=== PATIENT | female | born 1940 | race Caucasian/White ===

== ENCOUNTER 2017-07-12 15:25 | Observation (INO) ==
--- NOTE | 2017-07-12 15:56 | Emergency Department Note ---
Disposition Clinical Impression: Palpitations, New onset atrial fibrillation Disposition: Admitted As Inpatient Condition: Fair Referrals: Vicente Clayton MD [Family Provider] - NONE,PCP [Primary Care Provider] - Forms: ED Satisfaction Letter General Adult HPI - General Chief complaint: ED Arrhythmia/Palpitations Stated complaint: weakness. irreg HR Time Seen by Provider: 07/12/17 15:28 Source: patient, EMS Mode of arrival: ambulatory Limitations: no limitations Nursing Notes Reviewed: Yes Vital Signs Reviewed: Yes - History of Present Illness HPI Narrative: Patient presents today for evaluation of palpitations. Patient states that she can feel the palpitations and rapid heart rate. When she is standing she does feel weak with these. She has had previous palpitations in the past with cardiac workup including echo cardiac catheter and Holter monitor. These were more than 2 years ago. She at this time was found to have some PVCs per report by her but nothing else. The patient has not had any issues for some time. Patient does have a history of hypertension and hypercholesterolemia. Patient does not smoke or drink or use recreational drugs. Pain Scale: 0 - Related Data Home Medications Medication Instructions Recorded Confirmed Atorvastatin Calcium [Lipitor] 20 mg PO HS 07/12/17 07/12/17 Metoprolol [Lopressor] 25 mg PO BID 07/12/17 07/12/17 amLODIPine [Norvasc] 5 mg PO DAILY 07/12/17 07/12/17 hydroCHLOROthiazide 25 mg PO DAILY 07/12/17 07/12/17 [Hydrochlorothiazide] Allergies Allergy/AdvReac Type Severity Reaction Status Date / Time No Known Allergies Allergy Verified 07/12/17 16:53 Review of Systems: CONSTITUTIONAL: Weakness when standing at work but resolved while resting in bed No weight loss, fever, chills, HEENT: Eyes: No visual changes. Ears, Nose, Throat: No hearing loss, difficulty talking or unable to swallow. SKIN: No rash or itching. CARDIOVASCULAR: Palpitations without chest pain or pressure RESPIRATORY: No shortness of breath, cough or sputum. GASTROINTESTINAL: No anorexia, nausea, vomiting or diarrhea. No abdominal pain or blood. GENITOURINARY: No burning on urination or hematuria. NEUROLOGICAL: No headache, dizziness, syncope, paralysis, ataxia, numbness or tingling in the extremities. No change in bowel or bladder control. MUSCULOSKELETAL: No muscle pain, back pain, joint pain or stiffness. Past Medical History - Past Medical History Medical history: Reports: atrial fibrillation, hypertension Psychiatric history: Reports: no psych history - Social History Smoking Status: Never smoker Smokeless Tobacco Status: No Alcohol use: Reports: none Drug use: Reports: none Physical Exam General: Well appearing, nontoxic, no acute distress Head: Normocephalic Atraumatic Eyes: PERRL, EOMI ENT: Airway patent, no stridor Neck: supple, no meningismus Chest: Lungs clear to auscultation bilateral Cardiac: Regular rate and rhythm, no murmurs, rubs or gallops Abdomen: soft, nontender, nondistended; no guarding, rebound, or tenderness to percussion Musculoskeletal: Calves symmetric, nontender, no palpable cord Skin: No rash, normal skin tone Neuro: Alert and Oriented to person, place, and time; No focal deficit, - General General appearance: alert Course - Reevaluation(s) Reevaluation #1: Patient reevaluated and continued to be asymptomatic. Cardizem medications have been given. The patient's blood work is unremarkable. Patient will need further evaluation within the hospital. Patient agrees to admission. - Consultations Consultation #1: Discussed with cardiology. Likely A. fib. Low-dose Cardizem given the high variation in rate. Admit to the hospitalist and they will consult. Consultation #2: Discussed with hospitalist. Patient accepted for admission. Vital Signs Temperature 98.4 F 07/12/17 15:33 Pulse Rate 170 07/12/17 15:33 Respiratory Rate 18 07/12/17 15:33 Blood Pressure 145/103 07/12/17 15:33 O2 Sat by Pulse Oximetry 99 07/12/17 15:33 Temperature 98.4 F 07/12/17 15:33 Pulse Rate 124 07/12/17 17:06 Respiratory Rate 16 07/12/17 17:06 Blood Pressure 124/81 07/12/17 17:06 O2 Sat by Pulse Oximetry 96 07/12/17 17:06 Oxygen Delivery Oxygen Delivery Room Air Medical Decision Making - Medical Records Medical records reviewed: Yes I reviewed the patient's medical records. - Lab Data Lab results reviewed: Yes I reviewed the patient's lab results. Result diagrams: 07/12/17 15:50 07/12/17 15:50 Lab Results 0507/12/17 07/12/17 Range/Units 15:50 15:50 16:06 WBC 9.0 (4.3-11.1) K/mcL RBC 4.56 (3.82-4.97) M/mcL Hgb 14.6 (11.5-15.4) g/dL Hct 42.5 (35.3-44.9) % MCV 93.2 (83.0-100.0) fL MCH 32.0 (28.0-33.3) pg MCHC 34.4 (31.6-35.5) g/dL RDW 12.7 (11.5-14.5) % Plt Count 222 (140-400) K/mcL MPV 11.7 (9.4-12.4) fL Immature Gran % 0.6 (0-4) % Seg Neutrophils % 69.6 % Lymphocytes % 20.4 % Monocytes % 6.8 % Eosinophils % 1.9 % Basophils % 0.7 % Neutrophils # 6.2 (1.6-8.9) K/mcL Lymphocytes # 1.8 (0.6-4.6) K/mcL Monocytes # 0.6 (0.0-1.3) K/mcL Eosinophils # 0.2 (0.0-0.6) K/mcL Basophils # 0.1 (0.0-0.2) K/mcL Sodium 139 (136-145) mEq/L Potassium 3.8 (3.5-5.1) mEq/L Chloride 103 (98-107) mEq/L Carbon Dioxide 30 H (23-29) mEq/L BUN 18 (8-23) mg/dL Creatinine 0.75 (0.60-1.20) mg/dL Est GFR ( Amer) > 60 (> 60) Est GFR (Non-Af Amer) > 60 (> 60) BUN/Creatinine Ratio 24 (6-26) Glucose 114 H (70-105) mg/dL Calculated Osmolality 291 (280-300) Calcium 9.3 (8.6-10.3) mg/dL Magnesium 2.0 (1.6-2.6) mg/dL Troponin I < 0.03 (< 0.04) ng/mL TSH 1.857 (0.340-5.600) mcIU/mL Urine Color Yellow (Yellow) Urine Clarity Clear (Clear) Urine pH 7.5 (5.0-8.0) pH Units Ur Specific [place] 1.011 (1.010-1.025) Urine Protein Negative (Neg-Trace) mg/dL Urine Glucose (UA) Normal (Normal) mg/dL Urine Ketones Negative (Negative) mg/dL Urine Blood Negative (Negative) Urine Nitrite Negative (Negative) Urine Bilirubin Negative (Negative) Urine Urobilinogen Normal (Normal) mg/dL Ur Leukocyte Esterase Negative (Negative) Ur Culture Indicated? NO (NO) - Radiology Data Radiology results reviewed: Yes I reviewed the patient's radiology results. - EKG Data EKG #1 EKG attestation: Yes I reviewed and interpreted this EKG. EKG results narrative: EKG is irregular with episodes of tachycardia approximately a rate of 150. No discernible T waves other episodes of pauses and discernible P waves. No specific heart block. Concern for atrial fibrillation with RVR however sick sinus syndrome is also a consideration. Cardiology will be contacted. No previous EKG for comparison.
--- NOTE | 2017-07-12 16:08 | Emergency Department Note ---
Disposition Clinical Impression: Palpitations Disposition: Still a Patient Condition: Fair Forms: ED Satisfaction Letter Arrhythmia/Palpitations HPI - General Chief Complaint: ED Arrhythmia/Palpitations Stated Complaint: weakness. irreg HR Time Seen by Provider: 07/12/17 15:28 Source: patient, EMS Mode of arrival: ambulatory Limitations: no limitations Nursing Notes Reviewed: Yes Vital Signs Reviewed: Yes Past Medical History - Past Medical History Medical history: Reports: atrial fibrillation, hypertension Psychiatric history: Reports: no psych history - Social History Smoking Status: Never smoker Smokeless Tobacco Status: No Alcohol use: Reports: none Drug use: Reports: none Physical Exam - General Limitations: no limitations General appearance: alert Course Vital Signs Temperature 98.4 F 07/12/17 15:33 Pulse Rate 170 07/12/17 15:33 Respiratory Rate 18 07/12/17 15:33 Blood Pressure 145/103 07/12/17 15:33 O2 Sat by Pulse Oximetry 99 07/12/17 15:33 Temperature 98.4 F 07/12/17 15:33 Pulse Rate 170 07/12/17 15:33 Respiratory Rate 18 07/12/17 15:33 Blood Pressure 145/103 07/12/17 15:33 O2 Sat by Pulse Oximetry 98 07/12/17 15:48 Oxygen Delivery Oxygen Delivery Room Air Attestation Statement - Attestation Attestation: I, Juve Diaz, examined this patient and my medical decision-making was reviewed with the [employer]/PA/Advanced Practice Nurse/Resident Physician. I agree with the documented findings, disposition and treatment plan as described except to the extent set forth below. 77-year-old female presents emergency Department with concerns of palpitations. Patient states symptoms started around 3 AM and have been intermittent since that time. Patient states occasionally her heart rate will race and then returned normal. There is occurred multiple times in the past and generally occurs every 3-4 months. She states that usually resolves without intervention however he did not resolve today. Patient states she feels lightheaded with the palpitations, denies chest pain in the emergency department. No recent changes in her medications. She does not take blood thinning medications. Patient denies shortness of breath or cough or fever. EKG showed an irregular tachycardic rhythm that at times speeds to a rate of 150 without discernible P waves and other times will have a rate of 80 with what seems to be coinciding P waves. Patient is not unstable at this time. We will consult cardiology regarding the EKG. Patient comfortable with the plan for admission to the hospital. Laboratory evaluation and imaging is pending at this time.
[2017-07-12 16:11] LABS: Bilirubin,Urine Negative (Negative); Blood,Urine Negative (Negative); Clarity,Urine Clear (Clear); Color,Urine Yellow (Yellow); Glucose,Urine (UA) Normal (Normal); Ketones,Urine Negative (Negative); Leukocyte Esterase,Urine Negative (Negative); Nitrite,Urine Negative (Negative); PH,Urine 7.5 pH Units (5.0-8.0); Protein,Urine Negative (Neg-Trace); Specific Gravity,Urine 1.011 (1.010-1.025); Urobilinogen,Urine Normal (Normal)
[2017-07-12 16:45] LABS: BUN/Creatinine Ratio 24 (6-26); Blood Urea Nitrogen 18 mg/dL (8-23); Calcium 9.3 mg/dL (8.6-10.3); Carbon Dioxide 30 mEq/L (23-29); Chloride 103 mEq/L (98-107); Glucose 114 mg/dL (70-105); Osmolality,Calculated 291 (280-300); Potassium 3.8 mEq/L (3.5-5.1); Sodium 139 mEq/L (136-145); eGFR For African Americans > 60 (> 60); eGFR For Non-African Americans > 60 (> 60)
[2017-07-12 16:50] LABS: Basophils # 0.1 K/mcL (0.0-0.2); Basophils % 0.7 %; Eosinophils # 0.2 K/mcL (0.0-0.6); Eosinophils % 1.9 %; Hematocrit 42.5 % (35.3-44.9); Hemoglobin 14.6 g/dL (11.5-15.4); Immature Granulocytes % 0.6 % (0-4); Lymphocytes # 1.8 K/mcL (0.6-4.6); Lymphocytes % 20.4 %; Mean Corpuscular HGB Conc 34.4 g/dL (31.6-35.5); Mean Corpuscular Volume 93.2 fL (83.0-100.0); Mean Platelet Volume 11.7 fL (9.4-12.4); Monocytes # 0.6 K/mcL (0.0-1.3); Monocytes % 6.8 %; Neutrophils # 6.2 K/mcL (1.6-8.9); Platelet Count 222 K/mcL (140-400); Red Blood Count 4.56 M/mcL (3.82-4.97); Red Cell Distribution Width 12.7 % (11.5-14.5); Segmented Neutrophils % 69.6 %
[2017-07-12 16:53] LABS: Troponin I < 0.03 ng/mL (< 0.04)
[2017-07-12 17:08] LABS: Thyroid Stimulating Hormone 1.857 mcIU/mL (0.340-5.600)
[2017-07-12] MEDS ORDERED: *HR* Enoxaparin 80 MG/0.8 ML SYRINGE SQ STA (17:16)
--- NOTE | 2017-07-12 18:29 | Internal Med History&Physical ---
Date of Encounter: 07/12/17 Time of Encounter: 08:00 Internal Medicine - H&P: HPI Chief complaint: palpitaion History of present illness: Ms. Ortega is a 77 year old female was past medical history of hypertension who presents today for evaluation of palpitations and rapid heart rate. She follow [facility] outpatient for previous similar episode, and she went under cardiac workup including echo cardiac catheter and Holter monitor 2 years ago. she was evaluated by the ER staff and was started on Cardizem to control rate successfully, she was also started on pharmacological anticoagulation with Lovenox, cardiology was consulted and patient was admitted for further evaluation and management Past Med Surg Social Fam HX - Past Medical History Medical history: atrial fibrillation, hypertension Psychiatric history: no psych history - Social History Smoking Status: Never smoker Smokeless Tobacco Status: No Alcohol use: none Drug use: none Internal Medicine - H&P: Meds Atorvastatin Calcium [Lipitor] 20 mg PO HS 07/12/17 [History] Metoprolol [Lopressor] 25 mg PO BID 07/12/17 [History] amLODIPine [Norvasc] 5 mg PO DAILY 07/12/17 [History] hydroCHLOROthiazide [Hydrochlorothiazide] 25 mg PO DAILY 07/12/17 [History] Apixaban [Eliquis] 5 mg PO BID #60 tablet 07/13/17 [Rx] Potassium Chloride 20 meq PO DAILY #5 tab.er.prt 07/13/17 [Rx] 3 Allergy/AdvReac Type Severity Reaction Status Date / Time No Known Allergies Allergy Verified 07/12/17 16:53 All Systems PM: A 10-system review of systems was performed and is negative for pertinent findings except as documented above in the HPI. - Constitutional Constitutional: fatigue, no chills, no fever(s), no night sweats - Cardiovascular Cardiovascular ROS IM: dyspnea, irregular heart rhythm, lightheadedness, palpitations, no chest pain, no diaphoresis, no syncope - Respiratory Respiratory: no dyspnea, no wheezing, no excessive phlegm production - Gastrointestinal Gastrointestinal: no abdominal pain, no diarrhea, no hematemesis, no hematochezia, no melena, no nausea, no vomiting - Neurological Neurological ROS: no confusion, no convulsions, no focal weakness, no numbness, no tingling, no tremor(s) - Constitutional Vitals: Temp Pulse Resp BP Pulse Ox 98.4 F 124 16 124/81 96 07/12/17 15:33 07/12/17 17:06 07/12/17 17:06 07/12/17 17:06 07/12/17 17:06 Internal Med - H&P Results - Labs CBC & Chem 7: 07/13/17 00:45 07/13/17 00:45 - Assessment and plan (1) New onset atrial fibrillation Status: Acute Assessment and plan: the patient was started on Cardizem drip in the ER, now rate is controlled, she was also started on anticoagulation with Lovenox , we'll obtain echo to rule out structural abnormalities, admitted to the telemetry unit, cardiology was consulted for further evaluation and management (2) Hypertension Status: Acute Assessment and plan: we will continue home medication with holding parameters Qualifiers: Hypertension type: essential hypertension Qualified Code(s): I10 - Essential (primary) hypertension (3) DVT prophylaxis Status: Acute Assessment and plan: the patient was started on Lovenox. (4) Hyperlipidemia Status: Acute Assessment and plan: we will continue home statin and obtain fasting lipid profile in a.m. Qualifiers: Hyperlipidemia type: pure hypercholesterolemia Qualified Code(s): E78.00 - Pure hypercholesterolemia, unspecified; E78.0 - Pure hypercholesterolemia - Time Spent With Patient Total time spent is greater than 50% in coordination of care (as documented) at patient's floor/unit and/or counseling patient:
[2017-07-12] MEDS ORDERED: Acetaminophen 325 MG TABLET PO PRN (18:48)
[2017-07-12] MEDS ORDERED: Naloxone 0.4 MG/ML INJ IVP PRN (18:48)
[2017-07-13 01:00] LABS: Basophils # 0.1 K/mcL (0.0-0.2); Basophils % 0.6 %; Eosinophils # 0.2 K/mcL (0.0-0.6); Eosinophils % 2.6 %; Hematocrit 42.1 % (35.3-44.9); Hemoglobin 14.1 g/dL (11.5-15.4); Immature Granulocytes % 0.4 % (0-4); Lymphocytes # 2.4 K/mcL (0.6-4.6); Lymphocytes % 31.1 %; Mean Corpuscular HGB Conc 33.5 g/dL (31.6-35.5); Mean Corpuscular Hemoglobin 30.9 pg (28.0-33.3); Mean Corpuscular Volume 92.1 fL (83.0-100.0); Mean Platelet Volume 11.3 fL (9.4-12.4); Monocytes # 0.5 K/mcL (0.0-1.3); Monocytes % 6.7 %; Neutrophils # 4.6 K/mcL (1.6-8.9); Platelet Count 199 K/mcL (140-400); Red Blood Count 4.57 M/mcL (3.82-4.97); Red Cell Distribution Width 12.8 % (11.5-14.5); Segmented Neutrophils % 58.6 %
[2017-07-13 01:17] LABS: Alanine Aminotransferase 16 Units/L (7-52); Albumin 3.8 g/dL (3.5-5.7); Albumin/Globulin Ratio 1.2 (1.1-2.2); Alkaline Phosphatase 61 Units/L (34-104); Aspartate Amino Transferase 20 Units/L (13-39); BUN/Creatinine Ratio 24 (6-26); Bilirubin,Total 0.4 mg/dL (0.3-1.0); Blood Urea Nitrogen 17 mg/dL (8-23); Calcium 9.3 mg/dL (8.6-10.3); Carbon Dioxide 26 mEq/L (23-29); Chloride 107 mEq/L (98-107); Chol/HDL Ratio 3.3 (0-4.9); Cholesterol 170 mg/dL (< 200); Globulin 3.1 g/dL (2.4-3.5); Glucose 98 mg/dL (70-105); HDL Cholesterol 51 mg/dL (40-59); LDL Cholesterol,Calculated 87 mg/dL (0-99); Magnesium 2.1 mg/dL (1.6-2.6); Osmolality,Calculated 292 (280-300); Phosphorous 3.1 mg/dL (2.7-4.5); Potassium 3.3 mEq/L (3.5-5.1); Sodium 140 mEq/L (136-145); Total Protein 6.9 g/dL (6.4-8.9); Triglycerides 158 mg/dL (< 150); eGFR For African Americans > 60 (> 60); eGFR For Non-African Americans > 60 (> 60)
[2017-07-13] MEDS ORDERED: amLODIPine 5 MG TABLET PO SCH (09:00)
[2017-07-13] MEDS ORDERED: hydroCHLOROthiazide 25 MG TABLET PO SCH (09:00)
[2017-07-13] MEDS ORDERED: *HR* Enoxaparin 80 MG/0.8 ML SYRINGE SQ SCH (09:37)
--- NOTE | 2017-07-13 09:40 | Internal Med Progress Note ---
Date of Encounter: 07/13/17 Time of Encounter: 09:38 - Assessment and plan (1) New onset atrial fibrillation Current Visit: Yes Status: Acute Assessment and plan: Had to be stopped as the patient's heart rate went down to the 50s Anticoagulation discussed due to [id number] Vasc score of 4 (hypertension, female, more than 75 years old) Echocardiogram pending. Cardiology was consulted Continue telemetry Continue metoprolol Lovenox, the patient will decide between warfarin and oter antocoagulants (2) Hypertension Current Visit: Yes Status: Acute Assessment and plan: HCTZ, amlodipine Qualifiers: Hypertension type: essential hypertension Qualified Code(s): I10 - Essential (primary) hypertension (3) Hyperlipidemia Current Visit: Yes Status: Acute Assessment and plan: we will continue atorvastatin Qualifiers: Hyperlipidemia type: pure hypercholesterolemia Qualified Code(s): E78.00 - Pure hypercholesterolemia, unspecified; E78.0 - Pure hypercholesterolemia (4) Hypokalemia Current Visit: Yes Status: Acute Assessment and plan: replete - Time Spent With Patient Total time spent is greater than 50% in coordination of care (as documented) at patient's floor/unit and/or counseling patient: - Subjective Interval history: No palpitations today, denies any shortness of breath or chest pain, no fevers or chills, no abdominal pain dysuria or diarrhea - Constitutional Vitals: Temp Pulse Resp BP Pulse Ox 97.7 F 57 16 125/65 98 07/13/17 08:00 07/13/17 08:00 07/13/17 08:00 07/13/17 08:00 07/13/17 08:00 General appearance: Present: A&O X 3 - Head Head exam: Present: atraumatic, normocephalic - Eye Eye exam: Present: PERRL, conjuntiva pink, sclera anicteric Pupils: Present: PERRL - Neck Neck exam general surgery: Present: supple, trachea midline. Absent: lymphadenopathy - Respiratory Respiratory exam: Present: CTAB. Absent: accessory muscle use, rales, rhonchi, wheezes - Cardiovascular Cardiovascular exam: Present: RRR, +S1, +S2. Absent: diastolic murmur, gallop, rubs, systolic murmur - GI/Abdominal GI/Abdominal exam: Present: normal bowel sounds, soft, no peritoneal signs. Absent: distended, tenderness - Extremities Exam Extremities exam: Present: warm, radial pulses palpable and symmetrical. Absent : calf tenderness, cyanotic, pedal edema - Neurological Exam Neurological exam: Present: CN II-XII intact, oriented X3, no focal deficits. Absent: pronater drift, facial droop, speech deficit - Skin Skin exam: Present: dry, intact Internal Medicine: Result - Labs CBC & Chem 7: 07/13/17 00:45 07/13/17 00:45 Labs: Short CBC 07/13/17 Range/Units 00:45 WBC 7.8 (4.3-11.1) K/mcL Hgb 14.1 (11.5-15.4) g/dL Hct 42.1 (35.3-44.9) % Plt Count 199 (140-400) K/mcL Neutrophils # 4.6 (1.6-8.9) K/mcL BMP 07/13/17 00:45 Sodium 140 Potassium 3.3 L Chloride 107 Carbon Dioxide 26 BUN 17 Creatinine 0.70 Glucose 98 Calcium 9.3 Cardiac Enzymes 07/12/17 07/13/17 07/13/17 Range/Units 21:51 00:45 06:50 Troponin I < 0.03 < 0.03 < 0.03 (< 0.04) ng/mL Liver Function 07/13/17 Range/Units 00:45 Total Bilirubin 0.4 (0.3-1.0) mg/dL AST 20 (13-39) Units/L ALT 16 (7-52) Units/L Alkaline Phosphatase 61 (34-104) Units/L Albumin 3.8 (3.5-5.7) g/dL Consult Discharge Plan - Plan Referrals: NONE,PCP [Primary Care Provider] - Vicente Clayton MD [Family Provider] -
--- NOTE | 2017-07-13 10:16 | Cardiology Consult Note ---
Date of Encounter: 07/13/17 Time of Encounter: 09:30 Assessment and Plan (1) Atrial fibrillation Current Visit: Yes Status: Acute Presented with atrial fibrillation with RVR, HR 130,c/o palpitations intermittently over the last two years. Currently NSR. Patient converted prior to arrival to the floor. No afib seen in telemetry review. AVg HR 56. HR low while on cardizem gtt. Continue metoprolol. CHADS VASc= 3 for HTN, age, and gender. I dicussed AC with coumadin vs NOAC and she agrees to take eliquis. Indication, adverse effects, and use discussed. TTE 02/2013-Moderate concentric left ventricular hypertrophy. Normal chamber size and systolic function. LVEF 65%. Mild left ventricular diastolic dysfunction. Moderately dilated left atrium. Mildly thickened / redundant MV leaflets with mild anterior leaflet prolapse. Mild-moderate posteriorly directed MR. Mild TR. No pulmonary hypertension, est RVSP 32 mmHg. Trivial pericardial effusion noted near the RV. No echocardiographic evidence of tamponade. Re-peat TSH normal. TTE pending. Qualifiers: Atrial fibrillation type: paroxysmal Qualified Code(s): I48.0 - Paroxysmal atrial fibrillation Discussion w patient/family: The assessment and plan as outlined above was discussed with the patient and/or family members who expressed understanding and agreement. All questions were answered. Thank you for involving us in the care of your patient. Please call with any questions. History of Present Illness Consult date: 07/13/17 Requesting physician: Nica Lim Consult reason: new atrial fibrillation Chief complaint: palpitations increasing over past week and dizziness. History of present illness: Ms. Ortega is a 77 year old female with PMH significant for HTN, HLD, and palpitations who presented from work with the c/o dizziness. C/o palpitations increasing mostly at night over the last two weeks. She was evaluated by EMS personnel at her work and found to have elevated heart rate. EKG revealed atrial fibrillation with RVR. She was placed on a cardizem gtt. She converted to NSR. She denies previous history of atrial fibrillation. Reports Holter monitor was ordered at her last cardiology visit but was not set up yet. Past Med Surg Social Fam HX - Past Medical History Attestation: Yes The following information was validated with the patient. Medical history: hypertension Psychiatric history: no psych history - Past Surgical History Surgical History: no surgical history - Social History Smoking Status: Never smoker Smokeless Tobacco Status: No Alcohol use: none Drug use: none Medications and Allergies Atorvastatin Calcium [Lipitor] 20 mg PO HS 07/12/17 [History] Metoprolol [Lopressor] 25 mg PO BID 07/12/17 [History] amLODIPine [Norvasc] 5 mg PO DAILY 07/12/17 [History] hydroCHLOROthiazide [Hydrochlorothiazide] 25 mg PO DAILY 07/12/17 [History] 3 Allergy/AdvReac Type Severity Reaction Status Date / Time No Known Allergies Allergy Verified 07/12/17 16:53 All Systems Review: The remainder of the systems were reviewed and are negative Physical Examination Vital Signs, Last 4 Hours Temp Pulse Resp BP Pulse Ox 07/13/17 08:00 97.7 F 57 16 125/65 98 General: Conversant, No Apparent Distress HEENT: Atraumatic, Normocephaly, Mucus Membranes Moist Neck: No JVD, Normal carotid pulses Cardiac: Reg Rate and Rhythm, Normal S1 and S2, No Murmur Lungs: Normal Breath Sounds, No Wheeze, Rales, Rhonchi Neuro: Alert and responsive, No focal deficits noted Abdomen: Soft, Non-Tender Skin: No rashes noted on visualized skin Musculoskeletal: No Chest Wall Tenderness Extremities: No Clubbing, No Cyanosis, No Edema, Normal Pulses Results 07/13/17 00:45 07/13/17 00:45 Lab Results 07/12/17 07/13/17 07/13/17 21:51 00:45 00:45 WBC 7.8 Hgb 14.1 Hct 42.1 Plt Count 199 Sodium Potassium Chloride Carbon Dioxide BUN Creatinine Glucose Calcium Magnesium Total Bilirubin AST ALT Alkaline Phosphatase Troponin I < 0.03 < 0.03 07/13/17 07/13/17 00:45 06:50 WBC Hgb Hct Plt Count Sodium 140 Potassium 3.3 L Chloride 107 Carbon Dioxide 26 BUN 17 Creatinine 0.70 Glucose 98 Calcium 9.3 Magnesium 2.1 Total Bilirubin 0.4 AST 20 ALT 16 Alkaline Phosphatase 61 Troponin I < 0.03 - Imaging and Cardiology Echo: pending - EKG Interpretation EKG results cardiology: personally reviewed Consult Discharge Plan - Plan Referrals: Vicente Clayton MD [Family Provider] - NONE,PCP [Primary Care Provider] -
[2017-07-13] MEDS ORDERED: Apixaban 5 MG TABLET PO SCH (12:15)
--- NOTE | 2017-07-13 15:21 | Event Note ---
Date of Encounter: 07/13/17 Time of Encounter: 15:19 - Cardiology Event Note Discussed with Dr. Benitez, TTE without severe valvular disease (preliminary report ), okay to continue eliquis. Continue metoprolol. Out-pt f/u in the afib clinic will be scheduled in 2 weeks. Please call with questions.
[2017-07-13 16:24] VITALS: BP 136/63
--- NOTE | 2017-07-13 17:40 | Discharge Summary ---
<Christiano Oconnell - Last Filed: 07/13/17 17:38> - NOTES TO OUTPATIENT PROVIDER Notes to Outpatient Provider: The patient has known afib, presented in RVR. Was rate controlled with cardizem, started on lovenox for anticoagulation and transitioned to eliquis. She will follow-up with cardiology outpatient. Additionally, the patient had mild hyokalemia. Discharged on oral replacement therapy for 5 days with repeat BMP to be seen by PCP in 1 week. Orders not resulted at time of discharge: Pending orders 07/14/17 04:00 Basic Metabolic Panel AM 0400 Date of Encounter: 07/13/17 Time of Encounter: 17:38 - Discharge Diagnosis (1) New onset atrial fibrillation Priority: Primary Status: Acute Assessment and Plan: Was on cardizem, however rate has been controlled and it was stopped. The patient spontaneously converted to normal sinus rhythm and has stayed in it. Anticoagulation discussed due to [id number] Vasc score of 4 (hypertension, female, more than 75 years old) Echocardiogram complete, shows no significant valvular or structural disease. Does indicate mild diastolic dysfunction that was present previously. Cardiology recommends continued eliquis and metoprolol, follow-up in 1-2 weeks outpatient. (2) Hypertension Priority: Secondary Status: Acute Assessment and Plan: HCTZ, amlodipine Qualifiers: Hypertension type: essential hypertension Qualified Code(s): I10 - Essential (primary) hypertension (3) Hypokalemia Priority: Secondary Status: Acute Assessment and Plan: repleted, will provide repletion for 1 week and outpatient BMP (4) Hyperlipidemia Priority: Secondary Status: Acute Assessment and Plan: we will continue atorvastatin Qualifiers: Hyperlipidemia type: pure hypercholesterolemia Qualified Code(s): E78.00 - Pure hypercholesterolemia, unspecified; E78.0 - Pure hypercholesterolemia Hospital course: Ms. Ortega is a 77 year old female with known history of afib who presented to the ED with HR >130. She was found to have afib RVR, and was admitted on cardizem drip. The patient's rhythm converted to sinus bradycardia, and she was taken off of cardizem. HR remained appropriate in rate, and remained in sinus rhythm. New TTE demostrated mild diastolic dysfunction. Cardiology was consulted and recommended continued use of home dose metoprolol along with eliquis, and outpatient follow-up in 1-2wks. Additionally, the patient was found to have mild hypokalemia. It was repleted in the hospital, and she will be discharged with 5 days of supplement and an order for outpatient BMP in one week to be sent to primary care. Patient understands and agrees to this plan. Discharge discussed with: patient, family, nurse, csm consultant - Time Spent with Patient Total time spent providing and/or coordinating discharge services: Greater than 30 minutes - Discharge Medications Prescriptions: Apixaban [Eliquis] 5 mg PO BID #60 tablet Potassium Chloride 20 meq PO DAILY #5 tab.er.prt Home Medications: Atorvastatin Calcium [Lipitor] 20 mg PO HS 07/12/17 [History] Metoprolol [Lopressor] 25 mg PO BID 07/12/17 [History] amLODIPine [Norvasc] 5 mg PO DAILY 07/12/17 [History] hydroCHLOROthiazide [Hydrochlorothiazide] 25 mg PO DAILY 07/12/17 [History] Apixaban [Eliquis] 5 mg PO BID #60 tablet 07/13/17 [Rx] Potassium Chloride 20 meq PO DAILY #5 tab.er.prt 07/13/17 [Rx] Allergies/Adverse Reactions: 3 Allergy/AdvReac Type Severity Reaction Status Date / Time No Known Allergies Allergy Verified 07/12/17 16:53 Date of admission: 07/12/17 18:48 Primary care physician: PCP NONE Consults: 07/12/17 19:05 Consult to Physician [CONS] Routine Consulting Provider: Vicente Dalal Reason for Consult: A.fib Call Completed: Yes 07/13/17 09:34 Consult to Cardiology [CONS] Routine Comment: Consulting Provider: Cardiology Pam Reason for Consult: new onset a fib Call Completed: Yes Discharging clinician: Christiano Oconnell Anticipated date of discharge: 07/13/17 - Constitutional Vitals: Temp Pulse Resp BP Pulse Ox 97.8 F 57 20 136/63 95 07/13/17 16:21 07/13/17 16:21 07/13/17 16:21 07/13/17 16:21 07/13/17 16:21 General appearance: Present: A&O X 3, pleasant - Head Head exam: Present: atraumatic, normocephalic - Eye Eye exam: Present: PERRL, conjuntiva pink, sclera anicteric Pupils: Present: PERRL - Neck Neck exam general surgery: Present: supple, trachea midline. Absent: lymphadenopathy - Respiratory Respiratory exam: Present: CTAB. Absent: accessory muscle use, rales, rhonchi, wheezes - Cardiovascular Cardiovascular exam: Present: RRR, +S1, +S2. Absent: diastolic murmur, gallop, rubs, systolic murmur - Extremities Exam Extremities exam: Present: warm, radial pulses palpable and symmetrical. Absent : calf tenderness, cyanotic, pedal edema - Neurological Exam Neurological exam: Present: CN II-XII intact, oriented X3, no focal deficits. Absent: pronater drift, facial droop, speech deficit - Skin Skin exam: Present: dry, intact - Patient Status Disposition: Home, Self-Care Condition: Good Functional capacity at discharge: independent ambulation Overall status at discharge: patient is progressing back to baseline - Discharge Instructions Instructions: Atrial Fibrillation (DC), Chronic Hypertension (DC) Follow Up With: Vicente Clayton MD [Family Provider] - NONE,PCP [Non-Partnered Physician] - Additional Instructions: Follow-up with primary care with 1-2weeks. Follow-up with cardiology in 1-2weeks. Continue home metoprolol, eliquis Take potassium supplement daily for 5 days. Repeat lab at end of the week. Return to the ED for recurrent symptoms, chest pains, shortness of breath, or loss of consciousness. - Diet and Activity Activity: increase activity as tolerated Diet: low salt diet <Zhen Saeed H - Last Filed: 07/16/17 14:32> Date of Encounter: 07/16/17 - Discharge Diagnosis (1) New onset atrial fibrillation Status: Acute (2) Hypertension Status: Acute Qualifiers: Hypertension type: essential hypertension Qualified Code(s): I10 - Essential (primary) hypertension (3) Hyperlipidemia Status: Acute Qualifiers: Hyperlipidemia type: pure hypercholesterolemia Qualified Code(s): E78.00 - Pure hypercholesterolemia, unspecified; E78.0 - Pure hypercholesterolemia (4) Hypokalemia Status: Acute Hospital course: Ms. Ortega is a 77 year old female - Time Spent with Patient Total time spent providing and/or coordinating discharge services: Date of admission: 07/12/17 18:19 Primary care physician: Leana Dye CNP Consults: 07/12/17 19:05 Consult to Physician [CONS] Routine Consulting Provider: Vicente Dalal Reason for Consult: A.fib Call Completed: Yes 07/13/17 09:34 Consult to Cardiology [CONS] Routine Comment: Consulting Provider: Cardiology Pam Reason for Consult: new onset a fib Call Completed: Yes - Constitutional Vitals: Temp Pulse Resp BP Pulse Ox 97.8 F 57 20 136/63 95 07/13/17 16:21 07/13/17 16:21 07/13/17 16:21 07/13/17 16:21 07/13/17 16:21 - Attending Attestation New onset a fib with RVR continue metoprolol, Eliquis , follow up with cardiology as outpatient time spent 40 min I examined this patient and my medical decision-making was reviewed with the Resident Physician. I agree with the documented findings, disposition and treatment plan as described except to the extent set forth below.
--- NOTE | 2017-07-13 20:26 | Electrocardiograph Report ---
[address] [address] Test Date: 2017-07-12 Pat Name: Maru Ortega Department: 103 Room: 2NE27 Gender: F [employer]: CASANDRA : 1940 Requested By: Juve Diaz Order Number: [id number] Reading MD: Gabriel Benitez Measurements Intervals [place] Rate: 130 P: RI: 0 QRS: -35 QRSD: 97 T: 110 QT: 310 QTc: 387 Interpretive Statements ATRIAL FIBRILLATION WITH RAPID VENTRICULAR RESPONSE MARKED LEFT AXIS DEVIATION MODERATE VOLTAGE CRITERIA FOR LVH, WITH SECONDARY ST CHANGES Poor R wave progression Electronically Signed On 07-13-2017 20:24:34 EDT by Gabriel Benitez
--- NOTE | 2017-07-13 20:33 | Electrocardiograph Report ---
[address] [address] Test Date: 2017-07-12 Pat Name: Maru Ortega Department: 111 Room: [facility] Gender: F Historian [employer]: [facility] : 1940 Requested By: [id number] Order Number: [id number] Reading MD: Gabriel Benitez Measurements Intervals [place] Rate: 59 P: 96 NV: 228 QRS: -29 QRSD: 104 T: 84 QT: 441 QTc: 441 Interpretive Statements SINUS BRADYCARDIA WITH FIRST DEGREE AV BLOCK Electronically Signed On 07-13-2017 20:31:47 EDT by Gabriel Benitez
[2017-07-14] MEDS ORDERED: amLODIPine 5 MG TABLET PO SCH (09:00)
== END 2017-07-13 19:03 | disposition home or self-care (01) ==
LOC: EMEROO 15:25 → 2NENU 15:25
PROVIDERS: ADMIT Internal Medicine; ATTEND Internal Medicine Nephrology

== ENCOUNTER 2017-08-12 21:04 | Observation (INO) ==
[2017-08-12 21:27] LABS: Basophils % 0.5 %; Eosinophils # 0.2 K/mcL (0.0-0.6); Eosinophils % 2.4 %; Hematocrit 41.8 % (35.3-44.9); Hemoglobin 14.2 g/dL (11.5-15.4); Immature Granulocytes % 0.2 % (0-4); Lymphocytes # 1.9 K/mcL (0.6-4.6); Lymphocytes % 22.1 %; Mean Corpuscular Hemoglobin 31.1 pg (28.0-33.3); Mean Corpuscular Volume 91.7 fL (83.0-100.0); Mean Platelet Volume 11.1 fL (9.4-12.4); Monocytes # 0.7 K/mcL (0.0-1.3); Monocytes % 7.9 %; Neutrophils # 5.6 K/mcL (1.6-8.9); Platelet Count 220 K/mcL (140-400); Red Blood Count 4.56 M/mcL (3.82-4.97); Red Cell Distribution Width 12.7 % (11.5-14.5); Segmented Neutrophils % 66.9 %
[2017-08-12 21:48] LABS: BUN/Creatinine Ratio 14 (6-26); Blood Urea Nitrogen 11 mg/dL (8-23); Carbon Dioxide 26 mEq/L (23-29); Chloride 100 mEq/L (98-107); Glucose 106 mg/dL (70-105); Magnesium 2.1 mg/dL (1.6-2.6); Osmolality,Calculated 284 (280-300); Potassium 3.4 mEq/L (3.5-5.1); Sodium 137 mEq/L (136-145); Troponin I < 0.03 ng/mL (< 0.04); eGFR For African Americans > 60 (> 60); eGFR For Non-African Americans > 60 (> 60)
[2017-08-12 22:02] LABS: Thyroid Stimulating Hormone 3.065 mcIU/mL (0.340-5.600)
--- NOTE | 2017-08-12 22:28 | Emergency Department Note ---
Disposition Clinical Impression: Atrial fibrillation with RVR Disposition: Admitted As Inpatient Condition: Fair Time of Disposition: 23:08 Arrhythmia/Palpitations HPI - General Stated Complaint: afib Time Seen by Provider: 08/12/17 21:08 Source: patient, EMS Limitations: no limitations Nursing Notes Reviewed: Yes Vital Signs Reviewed: Yes - History of Present Illness HPI Narrative: Patient is a 77-year-old female who presents to [facility] ED with a chief complaint of rapid heart rate. States she has a history of atrial fibrillation. She follows with Dr. De Jesus who recently changed her heart medication and took her off her beta barbara and started her on Cardizem 120 mg daily. States she had just gotten done shopping and was getting ready to unload her car this evening when she started feeling her heart racing. Denies any chest pain, shortness of breath, abdominal pain, problems with urination or bowel movements. No nausea, vomiting, fever or chills. States she felt fine all day. Patient is anticoagulated on Eliquis. Pt Subjective Complaint: "heart racing" Onset (ago): Just [employer] Duration: constant Severity: moderate Context: occurred during rest Arrhythmia History: atrial fibrillation, on anti-coagulants - Related Data Home Medications Medication Instructions Recorded Confirmed Atorvastatin Calcium [Lipitor] 20 mg PO HS 07/12/17 07/12/17 Metoprolol [Lopressor] 25 mg PO BID 07/12/17 07/12/17 amLODIPine [Norvasc] 5 mg PO DAILY 07/12/17 07/12/17 hydroCHLOROthiazide 25 mg PO DAILY 07/12/17 07/12/17 [Hydrochlorothiazide] Previous Rx's Medication Instructions Recorded Apixaban [Eliquis] 5 mg PO BID #60 tablet 07/13/17 Potassium Chloride 20 meq PO DAILY #5 tab.er.prt 07/13/17 Allergies Allergy/AdvReac Type Severity Reaction Status Date / Time No Known Allergies Allergy Verified 07/12/17 16:53 All systems ED: reviewed and negative except as stated. Past Medical History - Past Medical History Attestation: Yes The following information was validated with the patient. Source: patient Medical history: Reports: atrial fibrillation, hypertension Surgical history: Reports: no surgical history Psychiatric history: Reports: no psych history - Social History Smoking Status: Never smoker Smokeless Tobacco Status: No Alcohol use: Reports: none Drug use: Reports: none Physical Exam - General Limitations: no limitations General appearance: alert, in no apparent distress - Head Head exam: atraumatic, normocephalic, normal inspection - Eye Eye exam: Present: EOMI - ENT ENT exam: normal exam, normal oropharynx, mucous membranes moist - Neck Neck exam: Present: normal inspection, full ROM, trachea midline - Chest Chest inspection: Present: normal inspection, symmetric chest wall rise - Respiratory Respiratory exam: Present: normal lung sounds bilaterally - Cardiovascular Cardiovascular exam: Present: normal rhythm, tachycardia - Abdominal Exam Abdominal exam: Present: soft, Non-Tender. Absent: tenderness, distention, guarding, rebound, rigidity - Extremities Exam Extremities exam: Present: normal inspection, full ROM. Absent: tenderness, pedal edema - Back Exam Back exam: Present: normal inspection, full ROM. Absent: tenderness - Neurological Exam Neurological exam: Present: alert, oriented X3 - Psychiatric Psychiatric exam: Present: normal affect, normal mood - Skin Skin exam: Present: warm, dry, intact, normal color Course Course Narrative: Patient seen and examined. Atrial fibrillation with RVR. We will give a 15 mg bolus of Cardizem. We will start a Cardizem drip. Cardiopulmonary workup initiated. Patient is currently anticoagulated on. - Reevaluation(s) Reevaluation #1: Labwork shows mild hypokalemia. We will replaced with 40 mEq of oral potassium. Patient had some mild response to the Cardizem. However her heart rate is still in the 90s-120s. Patient still feeling the same. I discussed with the hospitalist Dr. Matthews who has accepted patient for admission. Time: 22:06 Vital Signs Temperature 97.7 F 08/12/17 21:06 Pulse Rate 161 08/12/17 21:06 Respiratory Rate 16 08/12/17 21:06 Blood Pressure 130/88 08/12/17 21:06 O2 Sat by Pulse Oximetry 97 08/12/17 21:06 Temperature 97.7 F 08/12/17 21:06 Pulse Rate 113 08/12/17 22:07 Respiratory Rate 16 08/12/17 22:07 Blood Pressure 122/79 08/12/17 22:07 O2 Sat by Pulse Oximetry 97 08/12/17 22:07 Oxygen Delivery Oxygen Delivery Room Air Arrhythmia/Palpitations - Medical Records Medical records reviewed: Yes I reviewed the patient's medical records. - Lab Data Lab results reviewed: Yes I reviewed the patient's lab results. Result diagrams: 08/12/17 21:13 08/12/17 21:13 Lab Results 08/12/17 08/12/17 Range/Units 21:13 21:13 WBC 8.4 (4.3-11.1) K/mcL RBC 4.56 (3.82-4.97) M/mcL Hgb 14.2 (11.5-15.4) g/dL Hct 41.8 (35.3-44.9) % MCV 91.7 (83.0-100.0) fL MCH 31.1 (28.0-33.3) pg MCHC 34.0 (31.6-35.5) g/dL RDW 12.7 (11.5-14.5) % Plt Count 220 (140-400) K/mcL MPV 11.1 (9.4-12.4) fL Immature Gran % 0.2 (0-4) % Seg Neutrophils % 66.9 % Lymphocytes % 22.1 % Monocytes % 7.9 % Eosinophils % 2.4 % Basophils % 0.5 % Neutrophils # 5.6 (1.6-8.9) K/mcL Lymphocytes # 1.9 (0.6-4.6) K/mcL Monocytes # 0.7 (0.0-1.3) K/mcL Eosinophils # 0.2 (0.0-0.6) K/mcL Basophils # 0.0 (0.0-0.2) K/mcL Sodium 137 (136-145) mEq/L Potassium 3.4 L (3.5-5.1) mEq/L Chloride 100 (98-107) mEq/L Carbon Dioxide 26 (23-29) mEq/L BUN 11 (8-23) mg/dL Creatinine 0.80 (0.60-1.20) mg/dL Est GFR ( Amer) > 60 (> 60) Est GFR (Non-Af Amer) > 60 (> 60) BUN/Creatinine Ratio 14 (6-26) Glucose 106 H (70-105) mg/dL Calculated Osmolality 284 (280-300) Calcium 10.0 (8.6-10.3) mg/dL Magnesium 2.1 (1.6-2.6) mg/dL Troponin I < 0.03 (< 0.04) ng/mL TSH 3.065 (0.340-5.600) mcIU/mL - Radiology Data Radiology results reviewed: Yes I reviewed the patient's radiology results. Chest X-Ray 08/12/17 21:13 IMPRESSION: No acute process. D/ / Juwan Boland MD / Juwan Boland MD Interpreting Provider: Juwan Boland MD - EKG Data EKG attestation: Yes I reviewed and interpreted this EKG. EKG results narrative: EKG done at 2109 shows a narrow complex tachycardia with a rate of [address] elevation. There is some mild ST depression in leads V3, V4, V5, V6. Inverted T waves noted in leads 1 and aVL. Appears changed from prior EKG done 07/12/2017 as the prior was a sinus bradycardia with a first-degree AV block.
--- NOTE | 2017-08-12 23:26 | Emergency Department Note ---
Disposition Clinical Impression: Atrial fibrillation with RVR Disposition: Admitted As Inpatient Condition: Fair General Adult HPI - General Chief complaint: ED Arrhythmia/Palpitations Stated complaint: afib Time Seen by Provider: 08/12/17 21:08 Source: patient, EMS Limitations: no limitations Nursing Notes Reviewed: Yes Vital Signs Reviewed: Yes - History of Present Illness Pain Scale: 0 - Related Data Home Medications Medication Instructions Recorded Confirmed Atorvastatin Calcium [Lipitor] 20 mg PO HS 07/12/17 08/12/17 amLODIPine [Norvasc] 5 mg PO DAILY 07/12/17 07/12/17 hydroCHLOROthiazide 25 mg PO DAILY 07/12/17 08/12/17 [Hydrochlorothiazide] Diltiazem 24Hr ER 120 mg PO DAILY 08/12/17 08/12/17 Previous Rx's Medication Instructions Recorded Apixaban [Eliquis] 5 mg PO BID #60 tablet 07/13/17 Potassium Chloride 20 meq PO DAILY #5 tab.er.prt 07/13/17 Allergies Allergy/AdvReac Type Severity Reaction Status Date / Time No Known Allergies Allergy Verified 07/12/17 16:53 Past Medical History - Past Medical History Medical history: Reports: atrial fibrillation, hypertension Surgical history: Reports: no surgical history Psychiatric history: Reports: no psych history - Social History Smoking Status: Never smoker Smokeless Tobacco Status: No Alcohol use: Reports: none Drug use: Reports: none Physical Exam - General Limitations: no limitations General appearance: alert, in no apparent distress Course Vital Signs Temperature 97.7 F 08/12/17 21:06 Pulse Rate 161 08/12/17 21:06 Respiratory Rate 16 08/12/17 21:06 Blood Pressure 130/88 08/12/17 21:06 O2 Sat by Pulse Oximetry 97 08/12/17 21:06 Temperature 97.7 F 08/12/17 21:06 Pulse Rate 140 08/12/17 23:06 Respiratory Rate 16 08/12/17 23:06 Blood Pressure 130/73 08/12/17 23:06 O2 Sat by Pulse Oximetry 97 08/12/17 23:06 Oxygen Delivery Oxygen Delivery Room Air Medical Decision Making - Lab Data Result diagrams: 08/12/17 21:13 08/12/17 21:13 Lab Results 08/12/17 08/12/17 Range/Units 21:13 21:13 WBC 8.4 (4.3-11.1) K/mcL RBC 4.56 (3.82-4.97) M/mcL Hgb 14.2 (11.5-15.4) g/dL Hct 41.8 (35.3-44.9) % MCV 91.7 (83.0-100.0) fL MCH 31.1 (28.0-33.3) pg MCHC 34.0 (31.6-35.5) g/dL RDW 12.7 (11.5-14.5) % Plt Count 220 (140-400) K/mcL MPV 11.1 (9.4-12.4) fL Immature Gran % 0.2 (0-4) % Seg Neutrophils % 66.9 % Lymphocytes % 22.1 % Monocytes % 7.9 % Eosinophils % 2.4 % Basophils % 0.5 % Neutrophils # 5.6 (1.6-8.9) K/mcL Lymphocytes # 1.9 (0.6-4.6) K/mcL Monocytes # 0.7 (0.0-1.3) K/mcL Eosinophils # 0.2 (0.0-0.6) K/mcL Basophils # 0.0 (0.0-0.2) K/mcL Sodium 137 (136-145) mEq/L Potassium 3.4 L (3.5-5.1) mEq/L Chloride 100 (98-107) mEq/L Carbon Dioxide 26 (23-29) mEq/L BUN 11 (8-23) mg/dL Creatinine 0.80 (0.60-1.20) mg/dL Est GFR ( Amer) > 60 (> 60) Est GFR (Non-Af Amer) > 60 (> 60) BUN/Creatinine Ratio 14 (6-26) Glucose 106 H (70-105) mg/dL Calculated Osmolality 284 (280-300) Calcium 10.0 (8.6-10.3) mg/dL Magnesium 2.1 (1.6-2.6) mg/dL Troponin I < 0.03 (< 0.04) ng/mL TSH 3.065 (0.340-5.600) mcIU/mL Critical Care Time Critical Care Time: Yes Total Critical Care Time: 45 Attestation: Critical care performed: Time is exclusive of separately billable procedures. Time includes: direct patient care, patient reassessment, coordination of patient care, interpretation of data (laboratory data, radiology data, and respiratory data), review of patient's medical records, medical consultation and documentation of patient care. Procedures included in critical care time: Procedures excluded from critical care time: Attestation Statement - Attestation Attestation: I, Samuel Almazan MD, personally evaluated this patient and discussed their management with the resident physician. I reviewed the resident's note and agree with the documented findings, medical decision making, and plan of care. 77-year-old female with history of atrial fibrillation on Eliquis presents to the emergency department with a complaint of her heart racing and palpitations which started about 5 PM today. She denies any chest pain. No dizziness or syncope. She does admit to some mild shortness of breath with exertion when she walks around. History of multiple similar episodes in the past. On examination patient is a well-developed well-nourished well-appearing elderly female in no acute distress. She is alert and oriented 3. There is no cyanosis or diaphoresis. Breath sounds are clear and equal bilaterally. Heart is tachycardic and regular. There is a grade 1/6 systolic murmur. Abdomen soft and nontender with normal bowel sounds. No pedal edema. Labs reviewed. Chest x-ray negative. EKG shows a narrow complex tachycardia with a ventricular rate of 148. Anterolateral ST segment depressions, likely rate related. Patient received a Cardizem bolus and was placed on Cardizem infusion. The hospitalist, Dr. Matthews, was consulted and accepted admission of the patient.
[2017-08-13] MEDS ORDERED: Naloxone 0.4 MG/ML INJ IVP PRN (00:24)
--- NOTE | 2017-08-13 00:29 | Internal Med History&Physical ---
Date of Encounter: 08/12/17 Time of Encounter: 23:00 Internal Medicine - H&P: HPI Chief complaint: Palpitation Admitted From: Home Plans for Post Hospital Care: Home History of present illness: Ms. Ortega is a 77 year old female present to ER for palpitation. Past medical history is significant for A. fib, hypertension. Patient has a history of A. fib. Since this afternoon 5 PM patient started to have palpitation. Patient denies chest pain, shortness of breath, nausea, or vomiting. Patient denies diarrhea. In the emergency room, EKG shows A. fib RVR. Patient was started on Cardizem IV bolus plus drip. Patient also was found mild hypokalemia, potassium supplement was given. Patient was admitted for A. fib RVR. Past Med Surg Social Fam HX - Past Medical History Medical history: atrial fibrillation, hypertension Psychiatric history: no psych history - Past Surgical History Surgical History: no surgical history - Social History Smoking Status: Never smoker Smokeless Tobacco Status: No Alcohol use: none Drug use: none - Family History Mother History Unknown: Yes Internal Medicine - H&P: Meds Atorvastatin Calcium [Lipitor] 20 mg PO HS 07/12/17 [History] amLODIPine [Norvasc] 5 mg PO DAILY 07/12/17 [History] hydroCHLOROthiazide [Hydrochlorothiazide] 25 mg PO DAILY 07/12/17 [History] Apixaban [Eliquis] 5 mg PO BID #60 tablet 07/13/17 [Rx] Potassium Chloride 20 meq PO DAILY #5 tab.er.prt 07/13/17 [Rx] Diltiazem 24Hr ER 120 mg PO DAILY 08/12/17 [History] 3 Allergy/AdvReac Type Severity Reaction Status Date / Time No Known Allergies Allergy Verified 07/12/17 16:53 All Systems PM: A 10-system review of systems was performed and is negative for pertinent findings except as documented above in the HPI. - Constitutional Vitals: Temp Pulse Resp BP Pulse Ox 97.7 F 63 16 121/73 98 08/12/17 21:06 08/12/17 23:36 08/13/17 00:22 08/13/17 00:22 08/12/17 23:36 General appearance: Present: A&O X 3, no acute distress, answers questions appropriately - Head Head exam: Present: atraumatic, normocephalic - Eye Eye exam: Present: PERRL, conjuntiva pink, sclera anicteric Pupils: Present: PERRL - Neck Neck exam general surgery: Present: supple, trachea midline. Absent: lymphadenopathy - Respiratory Respiratory exam: Present: CTAB. Absent: accessory muscle use, rales, rhonchi, wheezes - Cardiovascular Cardiovascular exam: Present: RRR, +S1, +S2. Absent: diastolic murmur, gallop, rubs, systolic murmur - GI/Abdominal GI/Abdominal exam: Present: normal bowel sounds, soft, no peritoneal signs. Absent: distended, tenderness - Extremities Exam Extremities exam: Present: warm, radial pulses palpable and symmetrical. Absent : calf tenderness, cyanotic, pedal edema - Neurological Exam Neurological exam: Present: CN II-XII intact, oriented X3, no focal deficits. Absent: pronater drift, facial droop, speech deficit - Skin Skin exam: Present: dry, intact Internal Med - H&P Results - Labs CBC & Chem 7: 08/12/17 21:13 08/12/17 21:13 - Assessment and plan (1) Atrial fibrillation with RVR Current Visit: Yes Status: Acute Assessment and plan: Patient has history of A. fib. On Eliquis for anticoagulation. Patient was placed on Cardizem drip for A. fib RVR. When I see patient in ER, her heart rhythm changed to sinus with heart rate 60-70s. - Continue low rate Cardizem drip to maintain heart rate. - Increased by mouth Cardizem from 120 to 180 mg in AM. - Corrected electrolyte abnormality. Patient's TSH is wnl (2) DVT prophylaxis Current Visit: No Status: Acute Assessment and plan: Patient is on Eliquis. (3) Hypertension Current Visit: No Status: Acute Assessment and plan: Continue home medications and monitor BP Qualifiers: Hypertension type: essential hypertension Qualified Code(s): I10 - Essential (primary) hypertension (4) Hypokalemia Current Visit: No Status: Acute Assessment and plan: Patient's potassium level 3.4. By mouth potassium pill has been given by ER. Follow-up BMP in a.m. - Time Spent With Patient Total time spent is greater than 50% in coordination of care (as documented) at patient's floor/unit and/or counseling patient: 40 minutes Greater than 35 minutes
[2017-08-13 05:25] LABS: BUN/Creatinine Ratio 16 (6-26); Blood Urea Nitrogen 12 mg/dL (8-23); Calcium 9.5 mg/dL (8.6-10.3); Carbon Dioxide 29 mEq/L (23-29); Chloride 107 mEq/L (98-107); Glucose 102 mg/dL (70-105); Magnesium 2.1 mg/dL (1.6-2.6); Osmolality,Calculated 294 (280-300); Potassium 3.9 mEq/L (3.5-5.1); Sodium 142 mEq/L (136-145); eGFR For African Americans > 60 (> 60); eGFR For Non-African Americans > 60 (> 60)
[2017-08-13] MEDS ORDERED: hydroCHLOROthiazide 25 MG TABLET PO SCH (09:00)
[2017-08-13] MEDS ORDERED: Apixaban 5 MG TABLET PO SCH (09:00)
[2017-08-13] MEDS ORDERED: Diltiazem CD (24hr) 180 MG CAPSULE PO SCH (09:00)
--- NOTE | 2017-08-13 13:15 | Discharge Summary ---
<Christin Luque - Last Filed: 08/13/17 13:10> - NOTES TO OUTPATIENT PROVIDER Notes to Outpatient Provider: Patient case discussed with Cardiology, will discharge on home dose of cardizem 120mg daily and adivise patient to take and additional 1/2 tab if she experiences palpitations. Patient will need close follow up with Cardiology. Date of Encounter: 08/13/17 Time of Encounter: 13:11 - Discharge Diagnosis (1) Hypertension Priority: Secondary Status: Acute Qualifiers: Hypertension type: essential hypertension Qualified Code(s): I10 - Essential (primary) hypertension (2) Hypokalemia Priority: Secondary Status: Resolved (3) DVT prophylaxis Priority: Secondary Status: Acute (4) Atrial fibrillation with RVR Priority: Primary Status: Resolved Hospital course: Ms. Ortega is a 77 year old female with a history of afib who presented to [facility] ED 08/12 with complaints of palpitations. 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 She denied any other symptoms and noted that she felt fine all day. Patient is anticoagulated on Eliquis. She follows with [facility]. She had just seen Dr. Ronald De Jesus on 08/10 at which time he switched her metoprolol to Cardizem 120mg daily. They planned for an outpatient stress test. She was noted to be in Afib RVR in the ED. IV push of cardizem did not acheive rate control and she was started on a Cardizem drip. She achieved rate control in SR and was admitted to the floor for titration and management. She was taken off of the drip this morning with intention to increase her oral dose of cardizem. Her HR was in the 50's and 60's, so this dose was not given. Case was discussed with Dr. Johns who suggested that she discharge on her home dose of Cardizem 120mg and advise her to take an additional 1/2 tab if she experiences palpitations. She was discharged home in stable condition with close follow up with Dr. De Jesus and her PCP. 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 consultant - Time Spent with Patient Total time spent providing and/or coordinating discharge services: - Discharge Medications Home Medications: Atorvastatin Calcium [Lipitor] 20 mg PO HS 05/22/18 [History] hydroCHLOROthiazide [Hydrochlorothiazide] 25 mg PO DAILY 07/12/17 [History] Apixaban [Eliquis] 5 mg PO BID #60 tablet 07/13/17 [Rx] Diltiazem CD (24hr) [Cardizem CD] 120 mg PO DAILY 08/12/17 [History] Potassium Chloride 20 meq PO DAILY tab.er.prt 08/13/17 [Rx] Allergies/Adverse Reactions: 3 Allergy/AdvReac Type Severity Reaction Status Date / Time No Known Allergies Allergy Verified 07/12/17 16:53 Date of admission: 08/12/17 22:54 Primary care physician: Hiral Gross Discharging clinician: Christin Luque Anticipated date of discharge: 08/13/17 - Constitutional Vitals: Temp Pulse Resp BP Pulse Ox 97.8 F 63 17 139/65 97 08/13/17 10:50 08/13/17 10:50 08/13/17 10:50 08/13/17 10:50 08/13/17 10:50 General appearance: Present: A&O X 3, no acute distress, answers questions appropriately - Head Head exam: Present: atraumatic, normocephalic - Eye Eye exam: Present: PERRL, conjuntiva pink, sclera anicteric Pupils: Present: PERRL - Neck Neck exam general surgery: Present: supple, trachea midline. Absent: lymphadenopathy - Respiratory Respiratory exam: Present: CTAB. Absent: accessory muscle use, rales, rhonchi, wheezes - Cardiovascular Cardiovascular exam: Present: RRR, +S1, +S2. Absent: diastolic murmur, gallop, rubs, systolic murmur - GI/Abdominal GI/Abdominal exam: Present: normal bowel sounds, soft, no peritoneal signs. Absent: distended, tenderness - Extremities Exam Extremities exam: Present: warm, radial pulses palpable and symmetrical. Absent : calf tenderness, cyanotic, pedal edema - Neurological Exam Neurological exam: Present: oriented X3, no focal deficits, strengths equal and symetr throughout. Absent: facial droop, speech deficit - Psychiatric Psychiatric exam: Present: normal affect, normal mood - Skin Skin exam: Present: dry, intact, normal color - Patient Status Disposition: Home, Self-Care Condition: Fair Functional capacity at discharge: independent ambulation Overall status at discharge: patient is back to baseline - Discharge Instructions Follow Up With: Vicente Clayton MD [Family Provider] - Hiral Gross CNP [Primary Care Provider] - Juve De Jesus MD [Partnered Physician] - (within 3-5 days) Forms: ED Satisfaction Letter - Diet and Activity Activity: resume usual activities as tolerated Diet: low fat, low cholesterol <Jonas Rossi - Last Filed: 08/13/17 13:56> Date of Encounter: 08/13/17 - Discharge Diagnosis (1) Hypertension Status: Acute Qualifiers: Hypertension type: essential hypertension Qualified Code(s): I10 - Essential (primary) hypertension (2) DVT prophylaxis Status: Acute (3) Hypokalemia Status: Resolved (4) Atrial fibrillation with RVR Status: Resolved Hospital course: Ms. Ortega is a 77 year old female - Time Spent with Patient Total time spent providing and/or coordinating discharge services: Date of admission: 08/12/17 22:54 Primary care physician: Hiral Gross - Constitutional Vitals: Temp Pulse Resp BP Pulse Ox 97.8 F 63 17 139/65 97 08/13/17 10:50 08/13/17 10:50 08/13/17 10:50 08/13/17 10:50 08/13/17 10:50 - Attending Attestation I examined this patient and my medical decision-making was reviewed with the Resident Physician. I agree with the documented findings, disposition and treatment plan as described except to the extent set forth below. VS reviewed, BP and HR are within normal limits physical exam showed patient with no acute distress, RRR, lungs CTAB and no edema Labs were unremarkable Afib with RVR: - We called Cardiology today to discuss patient, as they did see patient in office 3 days ago. They advised to discharge patient back on her dosage of medication, Cardizem 120 mg daily since she is currently HR running 60s sinus with normal blood pressure. She will resume home medications with Cardiology follow-up.
[2017-08-13] MEDS ORDERED: Diltiazem SR (12hr) 60 MG CAPSULE PO ONE (14:22)
[2017-08-13 15:35] VITALS: BP 138/60
--- NOTE | 2017-08-16 17:36 | Electrocardiograph Report ---
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
== END 2017-08-13 17:49 | disposition home or self-care (01) ==
LOC: EMEROO 21:04 → 2NENU 21:04 → 2NNU 23:11 → 2NENU 23:43
PROVIDERS: ADMIT Internal Medicine; ATTEND Internal Medicine

== ENCOUNTER 2017-08-30 08:59 | Inpatient (IN) ==
[2017-08-30 12:00] LABS: Basophils % 0.5 %; Eosinophils # 0.2 K/mcL (0.0-0.6); Eosinophils % 2.3 %; Hematocrit 41.2 % (35.3-44.9); Hemoglobin 14.2 g/dL (11.5-15.4); Immature Granulocytes % 0.4 % (0-4); Lymphocytes # 1.4 K/mcL (0.6-4.6); Lymphocytes % 18.5 %; Mean Corpuscular HGB Conc 34.5 g/dL (31.6-35.5); Mean Corpuscular Hemoglobin 31.8 pg (28.0-33.3); Mean Corpuscular Volume 92.2 fL (83.0-100.0); Mean Platelet Volume 11.4 fL (9.4-12.4); Monocytes # 0.5 K/mcL (0.0-1.3); Monocytes % 6.2 %; Neutrophils # 5.4 K/mcL (1.6-8.9); Platelet Count 188 K/mcL (140-400); Red Blood Count 4.47 M/mcL (3.82-4.97); Red Cell Distribution Width 12.7 % (11.5-14.5); Segmented Neutrophils % 72.1 %
[2017-08-30 12:26] LABS: BUN/Creatinine Ratio 24 (6-26); Blood Urea Nitrogen 18 mg/dL (8-23); Calcium 9.6 mg/dL (8.6-10.3); Carbon Dioxide 27 mEq/L (23-29); Chloride 102 mEq/L (98-107); Glucose 113 mg/dL (70-105); Magnesium 2.1 mg/dL (1.6-2.6); Osmolality,Calculated 289 (280-300); Potassium 3.7 mEq/L (3.5-5.1); Sodium 138 mEq/L (136-145); eGFR For African Americans > 60 (> 60); eGFR For Non-African Americans > 60 (> 60)
--- NOTE | 2017-08-30 12:50 | History & Physical Report ---
Date of Encounter: 08/30/17 Time of Encounter: 12:47 24 Hour HP Update - Instructions Instructions: If the History and Physical is less than 30 days old and was completed prior to A.M. admission and or procedure and has NOT been updated on calendar day of procedure please complete this update prior to performing procedure. - Update Patient reports changes in Medical Condition: No Changes in examination, assessment, or condition: No Changes in Medication: No - Attending Attestation Please refer to eCW encounter with Dr. Juve De Jesus 08/26/17 for full H&P. 77 year old female with PAF, HTN that presents for antiarrhythmic initiation with Sotalol 80mg BID. Reports palpitations when in A-Fib. Currently SR. Anticoagulated on Eliquis, denies any missed doses in the past 30 days. EKG obtained, currently SR with 1st degree AV block, rate 59, QT/QTc 434/434 ms. Labs obtained. Renal function and electrolytes WNL. TTE 06/2017 LVEF 60%. Mild concentric left ventricular hypertrophy, moderate LVDD , no significant valvular dysfunction, mildly dilated LA. Mention in Dr. De Jesus's note of stress test in the future. Will determine if that will be done inpt. HR currently 50s, will hold home Cardizem CD 120mg daily since Sotalol is being started. Pt will need monitored for 5 doses of Sotalol, daily EKGs, continuous telemetry.
[2017-08-30] MEDS: Apixaban 5 MG TABLET PO SCH (21:38)
[2017-08-31] MEDS: Apixaban 5 MG TABLET PO SCH ×2 (10:17→21:40)
[2017-08-31] MEDS: hydroCHLOROthiazide 25 MG TABLET PO SCH (10:19)
--- NOTE | 2017-08-31 11:42 | Electrophysiology ProgressNote ---
Date of Encounter: 08/31/17 Time of Encounter: 11:38 Assessment and Plan (1) PAF (paroxysmal atrial fibrillation) Current Visit: Yes Status: Acute Presents for antiarrhythmic initiation with Sotalol 80mg BID. Reports palpitations when in A-Fib. Currently SR. Anticoagulated on Eliquis, denies any missed doses in the past 30 days. EKG 08/30/17 SR with 1st degree AV block, rate 59, QT/QTc 434/434 ms. EKG 08/31/17 SR, rate 49, QT/QTc 520/488ms. Has received 2 Sotalol doses. HR 40s, asymptomatic. Discussed and reviewed HR and QTc with Dr. Juve De Jesus. He recommends continuing 80mg BID of Sotalol. Labs obtained. Renal function and electrolytes WNL. TTE 06/2017 LVEF 60%. Mild concentric left ventricular hypertrophy, moderate LVDD , no significant valvular dysfunction, mildly dilated LA. Holding home Cardizem given bradycardia. Has not received Cardizem in 48 hours. Pt will need monitored for 5 doses of Sotalol, daily EKGs, continuous telemetry. Possible d/c tomorrow if remains stable. Discussion w patient/family: The assessment and plan as outlined above was discussed with the patient and/or family members who expressed understanding and agreement. All questions were answered. Thank you for involving us in the care of your patient. Please call with any questions. I will discuss all the above with Dr. Juve De Jesus and make changes as necessary. Subjective Principal diagnosis: PAF Interval history: S/P 2 doses of Sotalol 80mg. 12 hr tele AVG HR 49, SR. Pt reports mild headache , which is not abnormal for her. Denies any acute cardiac complaints. Objective Vital Signs Temp Pulse Resp BP Pulse Ox 08/31/17 07:24 98.6 F 62 16 123/67 95 08/31/17 03:13 97.7 F 45 16 108/60 95 08/30/17 23:19 97.6 F 53 18 139/78 97 08/30/17 21:41 99 08/30/17 20:59 97.8 F 52 16 148/63 99 08/30/17 17:04 97.8 F 51 16 153/76 99 Intake and Output 08/30/17 08/31/17 08/31/17 23:59 07:59 15:59 Intake Total 200 / 200 0 / 0 240 / 240 Output Total 0 / 0 400 / 400 Balance 200 / 200 -400 / -400 240 / 240 Intake: Oral 200 / 200 0 / 0 240 / 240 Output: Urine 0 / 0 400 / 400 Other: Meal Breakfast Percent of Meal Consumed 100% # Voids 5 Weight 72.303 kg Patient Weight 08/31/17 23:59 Weight 72.303 kg General: Conversant, No Apparent Distress HEENT: Atraumatic, Normocephaly, Mucus Membranes Moist Neck: No JVD, Normal carotid pulses Cardiac: Reg Rate and Rhythm, Normal S1 and S2, No Murmur Lungs: Normal Breath Sounds, No Wheeze, Rales, Rhonchi Neuro: Alert and responsive, No focal deficits noted Abdomen: Soft, Non-Tender Skin: No rashes noted on visualized skin Musculoskeletal: No Chest Wall Tenderness Extremities: No Clubbing, No Cyanosis, No Edema, Normal Pulses Results 08/30/17 11:35 08/30/17 11:35 Lab Results 08/30/17 08/30/17 11:35 11:35 WBC 7.5 Hgb 14.2 Hct 41.2 Plt Count 188 Sodium 138 Potassium 3.7 Chloride 102 Carbon Dioxide 27 BUN 18 Creatinine 0.75 Glucose 113 H Calcium 9.6 Magnesium 2.1 Short CBC 08/30/17 Range/Units 11:35 WBC 7.5 (4.3-11.1) K/mcL Hgb 14.2 (11.5-15.4) g/dL Hct 41.2 (35.3-44.9) % Plt Count 188 (140-400) K/mcL Neutrophils # 5.4 (1.6-8.9) K/mcL BMP 08/30/17 Range/Units 11:35 Sodium 138 (136-145) mEq/L Potassium 3.7 (3.5-5.1) mEq/L Chloride 102 (98-107) mEq/L Carbon Dioxide 27 (23-29) mEq/L BUN 18 (8-23) mg/dL Creatinine 0.75 (0.60-1.20) mg/dL Glucose 113 H (70-105) mg/dL Calcium 9.6 (8.6-10.3) mg/dL Active Medications Apixaban (Eliquis) 5 mg PO BID [facility] Stop: 03/01/18 21:01 Last Admin: 08/31/17 10:17 Dose: 5 mg Atorvastatin Calcium (Lipitor) 20 mg PO HS [facility] Stop: 03/01/18 21:01 Last Admin: 08/30/17 21:38 Dose: 20 mg Hydrochlorothiazide (Hydrochlorothiazide) 25 mg PO DAILY [facility] PRN Reason: Protocol Stop: 03/02/18 09:01 Last Admin: 08/31/17 10:19 Dose: 25 mg Potassium Chloride (Potassium Chloride) 20 meq PO DAILY [facility] Stop: 03/02/18 09:01 Last Admin: 08/31/17 10:17 Dose: 20 meq Sotalol HCl (Betapace) 80 mg PO Q12H [facility] Stop: 03/02/18 11:46 - EKG Interpretation EKG results cardiology: other (12 hr tele AVG HR 49, SR) - VTE Reasons for not Prescribing Prophylaxis: Not indicated-Anticoagulated or INR therapeutic Consult Discharge Plan - Plan Referrals: Hiral Gross CNP [Primary Care Provider] - Vicente Clayton MD [Family Provider] -
--- NOTE | 2017-09-01 06:39 | Electrocardiograph Report ---
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
--- NOTE | 2017-09-01 06:56 | Electrocardiograph Report ---
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
--- NOTE | 2017-09-01 07:21 | Electrocardiograph Report ---
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
[2017-09-01] MEDS: Apixaban 5 MG TABLET PO SCH (09:47)
[2017-09-01] MEDS: hydroCHLOROthiazide 25 MG TABLET PO SCH (09:47)
[2017-09-01 11:23] VITALS: BP 127/67
--- NOTE | 2017-09-01 14:17 | Discharge Summary ---
Orders not resulted at time of discharge: Pending orders 09/01/17 13:51 EKG [ECG 12 lead ECG] [ECG] Stat Date of Encounter: 09/01/17 Time of Encounter: 14:14 - Discharge Diagnosis (1) PAF (paroxysmal atrial fibrillation) Priority: Primary Status: Acute - Hospital Course Hospital course: Ms. Ortega is a 77 year old female presented for antiarrhythmic initiation with Sotalol 80mg BID for PAF. Reports palpitations when in A-Fib. Presented in SR and has maintained SR throughout stay. Anticoagulated on Eliquis. Has received 5 Sotalol doses. HR currently 50s, SR, stopped home Cardizem. Pt denies any acute complaints. Daily EKGs and EKG s/p 5th Sotalol dose show stable QTc. Discussed and reviewed with Dr. Juve De Jesus. D/C home in stable condition. Will coordinate outpt follow-up in 3-4 weeks. - Time Spent with Patient Total time spent providing and/or coordinating discharge services: Less than 30 minutes - Discharge Medications Prescriptions: Apixaban [Eliquis] 5 mg PO BID #60 tablet Sotalol [Betapace] 80 mg PO Q12H #60 tablet Home Medications: Atorvastatin Calcium [Lipitor] 20 mg PO HS 07/12/17 [History] hydroCHLOROthiazide [Hydrochlorothiazide] 25 mg PO DAILY 07/12/17 [History] Potassium Chloride 20 meq PO DAILY tab.er.prt 08/13/17 [Rx] Aspirin [Lo-Dose Aspirin EC] 81 mg PO DAILY 08/30/17 [History] Apixaban [Eliquis] 5 mg PO BID #60 tablet 09/01/17 [Rx] Sotalol [Betapace] 80 mg PO Q12H #60 tablet 09/01/17 [Rx] Allergies/Adverse Reactions: 3 Allergy/AdvReac Type Severity Reaction Status Date / Time No Known Allergies Allergy Verified 08/30/17 16:38 Date of admission: 08/30/17 08:59 Primary care physician: Hiral Gross Discharging clinician: Thierry Musa Anticipated date of discharge: 09/01/17 Physical Examination Vital Signs, Last 4 Hours Temp Pulse Resp BP Pulse Ox 09/01/17 11:35 47 09/01/17 11:21 98.1 F 45 16 127/67 99 Vital Signs Temp Pulse Resp BP Pulse Ox 09/01/17 11:35 47 09/01/17 11:21 98.1 F 45 16 127/67 99 09/01/17 06:50 97.5 F L 48 14 120/69 96 09/01/17 03:37 97.6 F 46 16 117/62 96 09/01/17 00:38 97.6 F 50 16 126/64 98 08/31/17 21:30 96 08/31/17 19:57 98.3 F 50 17 147/76 96 08/31/17 15:55 97.7 F 51 18 138/71 98 Intake and Output 08/31/17 09/01/17 09/01/17 23:59 07:59 15:59 Intake Total 640 / 640 600 / 600 Balance 640 / 640 600 / 600 Intake: Oral 640 / 640 600 / 600 Other: Meal Dinner Lunch Percent of Meal Consumed 25% 90% Weight 71.7 kg Patient Weight 09/01/17 23:59 Weight 71.7 kg General: Conversant, No Apparent Distress HEENT: Atraumatic, Normocephaly, Mucus Membranes Moist Neck: No JVD, Normal carotid pulses Cardiac: Reg Rate and Rhythm, Normal S1 and S2, No Murmur Lungs: Normal Breath Sounds, No Wheeze, Rales, Rhonchi Neuro: Alert and responsive, No focal deficits noted Abdomen: Soft, Non-Tender Skin: No rashes noted on visualized skin Musculoskeletal: No Chest Wall Tenderness Extremities: No Clubbing, No Cyanosis, No Edema, Normal Pulses - Patient Status Disposition: Home, Self-Care Condition: Good Functional capacity at discharge: independent ambulation Overall status at discharge: patient is back to baseline - Discharge Instructions Follow Up With: Vicente Clayton MD [Family Provider] - Hiral Gross CNP [Primary Care Provider] - - Diet and Activity Activity: increase activity as tolerated Diet: regular diet - VTE Reasons for not Prescribing Prophylaxis: Not indicated-Anticoagulated or INR therapeutic
== END 2017-09-01 15:12 | disposition home or self-care (01) | DRG 310 ==
LOC: 2ANU 08:59
PROVIDERS: ADMIT Internal Medicine Clinical Cardiac Electrophysiology; ATTEND Internal Medicine Clinical Cardiac Electrophysiology